=== PATIENT | female | born 1960 | race Caucasian/White ===

== ENCOUNTER 2018-03-14 15:43 | Outpatient (CLI) | payer OTHER | END 2018-03-14 15:44 | disposition home or self-care (01) | LOC: BICMAMMO 15:43 | PROVIDERS: ATTEND Family Medicine | DX: Z12.31 Encounter for screening mammogram for malignant neoplasm of breast (principal); Z80.3 Family history of malignant neoplasm of breast | CPT/HCPCS: 77063; 77067 ==

== ENCOUNTER 2019-04-04 10:37 | Outpatient (CLI) | payer OTHER ==
--- NOTE | 2019-04-04 12:38 | MMO ---
Bilateral MAMMO Bilat Screen [facility]. CLINICAL HISTORY: Patient is 59 years old and is seen for screening. The patient has the following family history of breast cancer: paternal grandmother. The patient has no personal history of cancer. VIEWS: The views performed were: bilateral craniocaudal with tomosynthesis and bilateral mediolateral oblique with tomosynthesis. FILMS COMPARED: The present examination has been compared to prior imaging studies performed at [facility] on 12/22/2014, 11/13/2015, 11/21/2016 and 03/14/2018. This study has been interpreted with the assistance of computer-aided detection. MAMMOGRAM FINDINGS: The breasts are heterogeneously dense, which could obscure a lesion on mammography. There is an area of architectural distortion seen in the right breast at 1 o'clock. In the left breast, there are no suspicious masses, calcifications or areas of architectural distortion. IMPRESSION: AREA OF ARCHITECTURAL DISTORTION IN THE RIGHT BREAST REQUIRES ADDITIONAL EVALUATION. AN ULTRASOUND EXAM IS RECOMMENDED. RECOMMEND DIAGNOSTIC MAMMOGRAM. THE RESULTS OF THIS EXAM WERE SENT TO THE PATIENT. ACR BI-RADS Category 0 - Incomplete: Need additional imaging evaluation. [facility] will notify the patient of the need for additional imaging services. MAMMOGRAPHY NOTE: 1. A negative mammogram report should not delay a biopsy if a dominant of clinically suspicious mass is present. 2. Approximately 10% to 15% of breast cancers are not detected by mammography. 3. Adenosis and dense breasts may obscure an underlying neoplasm. Reported by: BENJAMIN GRIGSBY MD Electonically Signed: [id number]
== END 2019-04-04 10:38 | disposition home or self-care (01) ==
LOC: BICMAMMO 10:37
PROVIDERS: ATTEND Family Medicine
DX: Z12.31 Encounter for screening mammogram for malignant neoplasm of breast (principal); Z80.3 Family history of malignant neoplasm of breast; N64.89 Other specified disorders of breast
CPT/HCPCS: 77063; 77067

== ENCOUNTER 2019-04-08 12:53 | Outpatient (CLI) | payer OTHER ==
--- NOTE | 2019-04-08 14:40 | MMO ---
Right Breast MAMMO Unilat Diag DDI RT+GABRIEL. CLINICAL HISTORY: Patient is 59 years old and is seen for additional evaluation requested from prior study. The patient has the following family history of breast cancer: paternal grandmother. The patient has no personal history of cancer. VIEWS: The views performed were: right craniocaudal spot compression magnification; right craniocaudal spot compression with tomosynthesis; right mediolateral oblique spot compression with tomosynthesis; right mediolateral spot compression magnification; and right mediolateral with tomosynthesis. FILMS COMPARED: The present examination has been compared to prior imaging studies performed at [facility] on 11/21/2016, 03/14/2018, 04/04/2019 and 04/08/2019. This study has been interpreted with the assistance of computer-aided detection. MAMMOGRAM FINDINGS: The breast is heterogeneously dense, which could obscure a lesion on mammography. Finding 1: There is an area of architectural distortion measuring 20 millimeters with associated punctate calcifications seen in the middle region of the right breast at 1 o'clock. Finding 2: There are stable benign appearing calcifications seen in the right breast. IMPRESSION: FINDING 1: AREA OF ARCHITECTURAL DISTORTION IN THE RIGHT BREAST IS SUSPICIOUS. NEEDLE LOCALIZATION AND BIOPSY ARE RECOMMENDED. FINDING 2: STABLE CALCIFICATIONS IN THE RIGHT BREAST ARE BENIGN. THE RESULTS OF THIS EXAM WERE SENT TO THE PATIENT. ACR BI-RADS Category 4 - Suspicious abnormality - biopsy should be considered MAMMOGRAPHY NOTE: 1. A negative mammogram report should not delay a biopsy if a dominant of clinically suspicious mass is present. 2. Approximately 10% to 15% of breast cancers are not detected by mammography. 3. Adenosis and dense breasts may obscure an underlying neoplasm. Reported by: DIPTI NOEL MD Electonically Signed: [id number]
--- NOTE | 2019-04-08 14:48 | ULT ---
LIMITED RIGHT BREAST ULTRASOUND: HISTORY: Exam performed with attention to the 1 o'clock position for abnormal finding on mammogram. FINDINGS: An area of focal architectural distortion is noted in the 1 o'clock position of the right breast. Th is is the area of concern from ultrasound. Two immediately adjacent small cysts are noted in the 1 o 'clock position of the right breast, in aggregate of a measurement of approximately 0.4 x 0.5 cm in s ize, but this is not the area of concern on mammography. There is no evidence for architectural dis tortion seen on ultrasound to account for the abnormal finding on mammogram. No solid mass. IMPRESSION: Ultrasound study does not demonstrate a mass or evidence for significant architectural distortion. S mall benign appearing cysts are noted but this does not represent the mammographic area of concern. Based on mammography, this is a BI-RADS Category 4-Suspicious finding. Since this area of architectural distortion is not identified with ultrasound and would be inadequate ly seen for stereotactic evaluation, a follow-up excisional biopsy following needle localization is r ecommended. This was discussed with the patient who is willing to proceed with that. The ordering physician will be notified. POS: OFF
== END 2019-04-08 12:54 | disposition home or self-care (01) ==
LOC: BICMAMMO 12:53
PROVIDERS: ATTEND Family Medicine
DX: N63.10 Unspecified lump in the right breast, unspecified quadrant (principal); Z80.3 Family history of malignant neoplasm of breast; R92.1 Mammographic calcification found on diagnostic imaging of breast
CPT/HCPCS: G0279

== ENCOUNTER 2019-04-10 09:47 | Outpatient (CLI) | payer OTHER | END 2019-04-10 09:48 | disposition home or self-care (01) | LOC: LABBT 09:47 | PROVIDERS: ATTEND Surgery | DX: Z01.818 Encounter for other preprocedural examination (principal); N63.10 Unspecified lump in the right breast, unspecified quadrant | CPT/HCPCS: 93005; 93010 ==

== ENCOUNTER 2019-05-02 14:30 | Outpatient (CLI) | payer OTHER ==
--- NOTE | 2019-05-03 09:08 | MRI ---
MRI BREAST WITH AND WITHOUT CONTRAST: HISTORY: Abnormality seen on recent mammogram. COMPARISON: Ultrasound 04/07/2019 and mammogram 04/07/2019, mammogram 04/04/2019. FINDINGS: Multiplanar, multisequence MRI of the breast was performed prior to and after the intravenous adminis tration of contrast. The exam was reviewed on an independent 3D work station. The breasts are heterogeneously dense. Moderate background parenchymal enhancement. Corresponding to the area of abnormality in the breast seen on the prior mammogram is an 11 mm spicul ated mass with focal internal area of type III kinetics with rapid arterial wash in and washout. Thi s is asymmetric to the other breast and there is no other focus of the abnormal arterial hyperenhance ment within the right breast. Multiple cysts of both breasts. No internal mammary adenopathy. No axillary adenopathy. No pericardial effusion. Liver is unremark able. The bone marrow signal is normal on T1 weighted imaging sequence. The mass is best seen on axial image 1059 of series 7 and 119 of series 8. Mass at the middle depth of the breast parenchyma approximately 4.7 cm from the nipple. IMPRESSION: BIRADS 4: Suspicious. 11 mm spiculated mass right breast 1 o'clock middle depth 4.7 cm from the nipp le with a focal internal area of type III kinetics is suspicious for malignancy. As previously recom mended, needle localization recommended. Alternatively, MRI-guided biopsy can be performed versus a second look ultrasound. POS: CET
== END 2019-05-02 14:31 | disposition home or self-care (01) ==
LOC: BICMRI 14:30
PROVIDERS: ATTEND Surgery
DX: N63.12 Unspecified lump in the right breast, upper inner quadrant (principal)
CPT/HCPCS: A9577; C8908

== ENCOUNTER → 2019-06-04 | Day surgery (SDC) | payer OTHER ==
--- NOTE | 2019-06-04 15:25 | MMO ---
Right Breast MAMMO Unilat Diag DDI RT. CLINICAL HISTORY: Patient is 59 years old and is seen for diagnostic exam. VIEWS: The views performed were: . FILMS COMPARED: The present examination has been compared to prior imaging studies performed at [facility] on 04/08/2019, 05/02/2019 and 06/04/2019. This study has been interpreted with the assistance of computer-aided detection. MAMMOGRAM FINDINGS: The breast is heterogeneously dense, which could obscure a lesion on mammography. There is a biopsy clip seen in the right breast. IMPRESSION: BIOPSY CLIP IN THE RIGHT BREAST IS CONFIRMED UTILIZING POST PROCEDURE MAMMOGRAM. THE RESULTS OF THIS EXAM WERE SENT TO THE PATIENT. MAMMOGRAPHY NOTE: 1. A negative mammogram report should not delay a biopsy if a dominant of clinically suspicious mass is present. 2. Approximately 10% to 15% of breast cancers are not detected by mammography. 3. Adenosis and dense breasts may obscure an underlying neoplasm. Reported by: LENNOX MANRIQUE MD Electonically Signed: [id number]
--- NOTE | 2019-06-04 16:23 | MRI ---
MRI guided biopsy right breast mass HISTORY: Abnormal mammogram and MRI. Right breast mass. FINDINGS: After explaining the procedure and answering all questions, limited MRI imaging of the righ t breast was performed before and after administration of gadolinium contrast. The enhancing mass at the mid slightly superior and medial aspect of the right breast was visualized. Rodrigo hinojosa Sterile technique, buffered local anesthesia, MRI guidance, and a lateral approach were used to caref ully advance a 10-gauge trocar needle to the level of the enhancing mass. Position was confirmed with MRI imaging. A total of 4 10-gauge vacuum-assisted specimens were obtained and eventually submitted to pathology f or evaluation. Localization clip was placed in the biopsy bed and needle removed. Hemostasis obtained using direct pressure. Patient tolerated the procedure well and was eventually dismissed in good condition. IMPRESSION: Technically successful MRI guided biopsy right breast mass. Pathology is pending.
== END ==
LOC: BICMRI 05-13 12:44
PROVIDERS: ATTEND Surgery
PROC: 0H9T3ZX Drainage of Right Breast, Percutaneous Approach, Diagnostic (ICD-10-PCS; principal; 2019-06-04)
DX: N60.21 Fibroadenosis of right breast (principal)
CPT/HCPCS: 19085; 88305; 88341; 88342; A9577

== ENCOUNTER 2022-03-18 13:09 | Outpatient (CLI) | payer OTHER | END 2022-03-18 13:10 | disposition home or self-care (01) | LOC: BICMAMMO 13:09 | PROVIDERS: ATTEND Acupuncturist | DX: R92.8 Other abnormal and inconclusive findings on diagnostic imaging of breast (principal) | CPT/HCPCS: G0279 ==

== ENCOUNTER → 2022-03-28 | Day surgery (SDC) | payer OTHER | END | disposition home or self-care (01) | LOC: BICULT 11:59 | PROVIDERS: ATTEND Acupuncturist | DX: R92.8 Other abnormal and inconclusive findings on diagnostic imaging of breast (principal); Z53.9 Procedure and treatment not carried out, unspecified reason ==

== ENCOUNTER 2022-09-19 13:09 | Outpatient (CLI) | payer OTHER | END 2022-09-19 13:10 | disposition home or self-care (01) | LOC: BICMAMMO 13:09 | PROVIDERS: ATTEND Internal Medicine | DX: Z13.820 Encounter for screening for osteoporosis (principal); Z78.0 Asymptomatic menopausal state; C50.411 Malignant neoplasm of upper-outer quadrant of right female breast; M85.851 Other specified disorders of bone density and structure, right thigh; M85.852 Other specified disorders of bone density and structure, left thigh | CPT/HCPCS: 77080 ==

== ENCOUNTER 2023-03-27 13:11 | Outpatient (CLI) | payer OTHER | END 2023-03-27 13:12 | disposition home or self-care (01) | LOC: BICMAMMO 13:11 | PROVIDERS: ATTEND Internal Medicine | DX: C50.411 Malignant neoplasm of upper-outer quadrant of right female breast (principal); Z98.890 Other specified postprocedural states | CPT/HCPCS: 77066; G0279 ==